=== PATIENT | female | born 1975 | race American Indian/Alaskan Native ===

== ENCOUNTER 2017-06-16 09:48 | Outpatient (CLI) | payer BC ==
--- NOTE | 2017-06-30 15:46 | Ultrasound Report ---
ULTRASOUND GUIDED NEEDLE CORE BIOPSY OF AN ABNORMAL RIGHT AXILLARY LYMPH NODE WITH CLIP PLACEMENT : 06/16/17 09:48:00 CLINICAL: Enlarged axillary lymph nodes. COMPARISON :None. FINDINGS: The procedure was explained to the patient and informed consent was obtained. Ultrasound demonstrated several mildly enlarged right axillary lymph nodes. The skin in the axilla was prepped with Betadine and anesthetized with 1% lidocaine. Ultrasound guided needle core biopsy of the largest lymph node was performed through a small dermatotomy using 2% lidocaine with epinephrine for deep anesthesia and a 18-gauge Achieve biopsy device. 2 samples were obtained and placed in formalin. These samples were obtained and placed in medium for flow cytometry. A clip was deployed within the lymph node. Hemostasis was achieved with minimal pressure and a sterile dressing was applied. The patient tolerated the procedure well and there were no apparent complications. She was discharged in good condition and was given instructions for wound care and followup. IMPRESSION: Uncomplicated ultrasound-guided needle core biopsy of a right lymph node with clip placement.
== END 2017-06-16 09:49 | disposition home or self-care (01) ==
LOC: SPVWC 09:48
PROVIDERS: ATTEND Family Medicine
DX: R59.0 Localized enlarged lymph nodes (principal); Z88.8 Allergy status to other drugs, medicaments and biological substances
CPT/HCPCS: 38505; 88184; 88185; 88305; A4648